=== PATIENT | female | born 1985 | race Two or more races ===

== ENCOUNTER 2016-08-16 16:51 | Emergency (ER) | payer MEDICAID ==
[~2016-08-16] VITALS: Ht 152.4 cm; Wt 54.4 kg
[2016-08-16 17:10] VITALS: BP 133/95
[2016-08-16 17:31] LABS: Basophils # (auto) 0 uL; Basophils % (auto) 0.7 % (0.0-2.0); Eosinophils # (auto) 0.3 uL; Eosinophils % (auto) 4.1 % (0.0-7.0); Hematocrit 42.3 % (36.0-46.0); Hemoglobin 13.4 g/dL (12.2-16.2); Lymphocytes # (auto) 1.7 uL; Lymphocytes % (auto) 26.1 % (10.0-50.0); Mean Corpuscular Hemoglobin 30.6 pg (28.0-32.0); Mean Corpuscular Hgb Conc. 31.8 g/dL (32.0-36.0); Mean Corpuscular Volume 96.3 fL (80.0-100.0); Monocytes # (auto) 0.8 uL; Monocytes % (auto) 11.7 % (0.0-12.0); Neutrophils # (auto) 3.7 uL; Neutrophils % (auto) 57.4 % (37.0-80.0); Platelet Count (auto) 304 10^3/uL (140-450); Red Cell Distribution Width 12.5 % (11.6-16.0); White Blood Cell 6.5 10^3/uL (4.4-10.8)
[2016-08-16 17:58] LABS: Albumin 3.7 g/dL (3.4-5.0); BUN/Creatinine Ratio 16.7; Bilirubin, Total 0.2 mg/dL (0.2-1.0); Calcium 8.8 mg/dL (8.5-10.1); Potassium 3.9 mmol/L (3.5-5.1); Total Protein 7.2 g/dL (6.4-8.2)
[2016-08-16 18:04] LABS: INR 1.1 (0.9-1.15); Prothrombin Time 11.3 sec (9.37-12.3)
== END 2016-08-16 21:03 | disposition home or self-care (01) ==
LOC: ER 16:57
DX: O20.0 Threatened abortion (principal); Z3A.01 Less than 8 weeks gestation of pregnancy
CPT/HCPCS: 36415; 76801; 80053; 84702; 85025; 85610; 85730

== ENCOUNTER 2016-08-19 08:25 | Emergency (ER) | payer MEDICAID ==
[~2016-08-19] VITALS: Ht 154.9 cm; Wt 58.5 kg
[2016-08-19 09:15] VITALS: BP 118/81
== END 2016-08-19 11:43 | disposition home or self-care (01) ==
LOC: ER 08:25
DX: O03.9 Complete or unspecified spontaneous abortion without complication (principal); Z3A.01 Less than 8 weeks gestation of pregnancy
CPT/HCPCS: 36415; 84702